=== PATIENT | male | born 1965 | race Caucasian/White ===

== ENCOUNTER 2017-09-18 10:30 | Day surgery (SDC) | payer OTHER ==
[2017-09-18] MEDS ORDERED: FENTAnyl 50 MCG/ML VIAL (17:04)
[2017-09-18] MEDS ORDERED: MIDAZOLAM 1 MG/ML 2 ML INJ (17:04)
== END 2017-09-18 14:09 | disposition home or self-care (01) ==
LOC: GIL 10:30
DX: Z12.11 Encounter for screening for malignant neoplasm of colon (principal); D12.0 Benign neoplasm of cecum; K64.8 Other hemorrhoids
CPT/HCPCS: 45380; 88305